=== PATIENT | female | born 1955 | race Caucasian/White ===

== ENCOUNTER 2022-04-11 01:35 | Day surgery (SDC) | payer OTHER, SELFPAY ==
[2022-03-29 15:20] VITALS: BMI 28.6
[2022-04-11 06:20] VITALS: BP 122/92; PULSE 77; RESP 16; TEMP 37.1; O2SAT 100
[2022-04-11] MEDS: LACTATED RINGERS 1,000 ML 150 ML IV CONT (06:35)
--- NOTE | 2022-04-11 07:15 | P.PNAN_ITS ---
Anes - Initial Pre Proc Eval Procedure: Operation Date: 04/11/22 07:30 Proposed Procedures p Screening Colonoscopy - Cody Solis MD Date/Time: 04/11/22 07:15 Surgeon: Cody Solis MD Pre Op Diagnosis: hx of colon polyps, neoplasm screening Patient Data Age: 66 Gender: F Height: 1.57 m Weight: 69 kg Last Vital Signs Temp 98.7 F 04/11/22 06:20 Pulse 77 04/11/22 06:20 Resp 16 04/11/22 06:20 BP 122/92 H 04/11/22 06:20 Pulse Ox 100 04/11/22 06:20 O2 Del Method Room Air 04/11/22 06:20 Allergies Allergy/AdvReac Type Severity Reaction Status Date / Time aspirin Allergy Unknown Wheezing--Sob-Chest Verified 04/11/22 06:19 tightness ibuprofen Allergy Unknown Unknown Verified 04/11/22 06:19 Sulfa (Sulfonamide Allergy Unknown Skin Verified 04/11/22 06:19 Antibiotics) Reaction Home Medications Medication Instructions Recorded Confirmed Type diphenhydramine HCl 25 mg tablet 25 mg PO Q6H PRN Allergy Symptoms 12/14/19 04/11/22 History (Allergy (diphenhydramine)) fluticasone propionate 50 2 spray intranasal DAILY 12/14/19 04/11/22 History mcg/actuation nasal spray,suspension loratadine 10 mg tablet 10 mg PO DAILY 12/14/19 04/11/22 History atorvastatin 40 mg tablet See Rx Instructions .Route 11/20/21 04/11/22 Rx .COMPLEX #90 tabs alendronate 70 mg tablet See Rx Instructions .Route 12/28/21 04/11/22 Rx .COMPLEX #12 tabs Patient hx anesthesia problems: none Family hx anesthesia problems: none Results Review: All pre-operative results and documents have been reviewed as part of the pre- operative evaluation. [facility] Surgical History Surgical History H/O breast biopsy H/O colonoscopy H/O laparoscopy H/O: hysterectomy History of appendectomy Family History Family History Father Hypertension Family history of elevated blood lipids Family history of coronary artery disease Grandparent Carcinoma of colon Social History Social History Smoking status: Never smoker Alcohol intake: current Alcohol use details: 1 PER MONTH Substance use: never Substance use type: does not use Living arrangements: with family Spiritual care concerns: No Anes - Eval Final PreProcedure Day of Procedure 04/11/22 07:15 Patient weight: overweight Heart: regular rate and rhythm Lungs: clear to auscultation Airway: Mallampati scale class II Neurological: alert and oriented Last oral intake: >/= 8 hours ASA classification: II Emergent: no Anesthetic plan: proceed Anesthesia type and monitoring: general GIVS and standard monitoring Results Review: All pre-operative results and documents have been reviewed as part of the pre- operative evaluation. Informed Consent: The patient's anesthetic plan and its attendant risks and benefits were discussed with the patient/family/POA. Questions were solicited and answers provided to the satisfaction of the patient/family/POA.
[2022-04-11] MEDS: SIMETHICONE ORAL SUSPENSION 20 MG/0.3 ML 30 ML BOTTLE 0.6 ML IRRIGATION (07:43)
--- NOTE | 2022-04-11 07:49 | PM.IMHP ---
H&P: HPI History of Present Illness Date/Time: 04/11/22 07:49 Chief Complaint: Neoplasia screening. Narrative: This is a 66-year-old white female patient who presents for neoplasia screening. Patient reports that her current weight appetite and bowel movements are normal. She denies abdominal pain. She has had no bleeding. Family history is significant for her grandmother having colon cancer. Patient herself had an inflammatory benign polyp removed from the colon 2015. She presents today for follow-up examination. She states that her current bowel habits are normal with no bleeding or pain. Review of Systems Review of Systems: Review of systems noncontributory. [facility] Surgical History Surgical History H/O breast biopsy H/O colonoscopy H/O laparoscopy H/O: hysterectomy History of appendectomy Family History Family History Father Hypertension Family history of elevated blood lipids Family history of coronary artery disease Grandparent Carcinoma of colon Social History Social History Smoking status: Never smoker Alcohol intake: current Alcohol use details: 1 PER MONTH Substance use: never Substance use type: does not use Living arrangements: with family Spiritual care concerns: No Meds Home Medications and Allergies Home Medications Medication Instructions Recorded Confirmed Type diphenhydramine HCl 25 mg tablet 25 mg PO Q6H PRN Allergy Symptoms 12/14/19 04/11/22 History (Allergy (diphenhydramine)) fluticasone propionate 50 2 spray intranasal DAILY 12/14/19 04/11/22 History mcg/actuation nasal spray,suspension loratadine 10 mg tablet 10 mg PO DAILY 12/14/19 04/11/22 History atorvastatin 40 mg tablet See Rx Instructions .Route 11/20/21 04/11/22 Rx .COMPLEX #90 tabs alendronate 70 mg tablet See Rx Instructions .Route 12/28/21 04/11/22 Rx .COMPLEX #12 tabs Allergies Allergy/AdvReac Type Severity Reaction Status Date / Time aspirin Allergy Unknown Wheezing--Sob-Chest Verified 04/11/22 06:19 tightness ibuprofen Allergy Unknown Unknown Verified 04/11/22 06:19 Sulfa (Sulfonamide Allergy Unknown Skin Verified 04/11/22 06:19 Antibiotics) Reaction Vital Signs Vital Signs - 24 hr 04/11/22 06:20 Temperature 98.7 F Pulse Rate 77 Respiratory Rate 16 Blood Pressure 122/92 H Pulse Oximetry 100 Oxygen Delivery Room Air Exam Narrative: Physical exam reveals patient to be alert. Vital signs stable. HEENT exam is unremarkable. Patient is anicteric. Lungs are clear to auscultation and percussion. Heart is without murmur or extra sounds. Abdominal exam bowel sounds are present soft nontender with no organomegaly. Digital external rectal exam is normal. Assessment and Plan Assessment and plan (1) Screening for colon cancer: Code(s): Z12.11 - Encounter for screening for malignant neoplasm of colon Status: Acute Assessment and Plan: Patient appears for screening colonoscopy. She has colon cancer in a more distant family member. Plan is for surveillance colonoscopy now further recommendations will be given after endoscopy.
[2022-04-11 07:53] VITALS: BP 103/57; PULSE 75; RESP 22; O2SAT 98
[2022-04-11 08:03] VITALS: BP 115/72; PULSE 63; RESP 22; O2SAT 100
[2022-04-11 08:13] VITALS: BP 129/72; PULSE 61; RESP 17; O2SAT 99
== END 2022-04-11 08:24 | disposition home or self-care (01) ==
PROVIDERS: PCP Family Medicine; Visit Provider Internal Medicine Gastroenterology
PROC: 0DJD8ZZ Inspection of Lower Intestinal Tract, Via Natural or Artificial Opening Endoscopic (ICD-10-PCS; CPT 45378; principal; 2022-04-11 07:30)
DX: Z12.11 Encounter for screening for malignant neoplasm of colon (principal); K64.8 Other hemorrhoids; Z80.0 Family history of malignant neoplasm of digestive organs
CPT/HCPCS: 45378; J2704; J7120

== ENCOUNTER 2022-04-17 15:14 | Outpatient (CLI) | payer OTHER, SELFPAY ==
--- NOTE | ~2022-04-17 | MM_ITS ---
EXAMINATION: MM screening [facility] BI w tom HISTORY: Screening TECHNIQUE: Craniocaudal and mediolateral oblique 3-D tomosynthesis images were obtained and synthetic 2-D images were generated. CAD analysis was submitted and interpreted. COMPARISON: Comparison to multiple prior studies sequentially, with oldest reviewed study dated 02/2014. BREAST PARENCHYMAL COMPOSITION: There are scattered areas of fibroglandular density. FINDINGS: There is no evidence of suspicious mass, calcification, or architectural distortion to sugg est malignancy in either breast. There has been no suspicious interval change. IMPRESSION: 1. No mammographic evidence of malignancy. 2. Recommend routine screening mammography in one year. BI-RADS Category 1: Negative Reviewed, dictated and finalized at location A.
--- NOTE | ~2022-04-17 | DEXA_ITS ---
Bone Density Report Name: CAITY SAUER Age: 66 Sex: Female Ethnicity: White Date of : 1955 Indication: postmenopausal; screening for osteoporosis; height loss; Referring Provider: ERMIAS WALDEN Study: Bone densitometry was performed. Exam Date: April 17, 2022 Accession number: [id number] Bone Density: Region BMD T-score Z-score Classification AP Spine(L1-L4) 0.742 -2.8 -1.0 Osteoporosis Femoral Neck (Left) 0.604 -2.2 -0.7 Osteopenia Total Hip (Left) 0.808 -1.1 0.1 Osteopenia Femoral Neck (Right) 0.687 -1.5 0.0 Osteopenia Total Hip (Right) 0.844 -0.8 0.4 Normal Total Hip Mean 0.826 -1.0 0.3 Normal World Health Organization criteria for BMD impression classify patients as: Normal (T-score at or above -1.0), Osteopenia (T-score between -1.0 and -2.5), or Osteoporosis (T-score at or below -2.5). 10-year Fracture Risk: FRAX not reported because: Some T-score for Spine Total or Hip Total or Femoral Neck at or below -2.5 Treated for osteoporosis Clinical Information Provided by Patient: Is being treated for osteoporosis Has used the following medications: Fosamax (i.e. alendronate) Patient maximum height was 64 Menopause Age: 52 No regular weight bearing exercise Onset of menses at age 14 Number of children 1 Impression: The patient has osteoporosis, based on the Total Spine T-score. Discussion: It is important to ask patients whether they are taking their medications and to encourage continued and appropriate compliance with their osteoporosis therapies to reduce fracture risk. It is also important to review their risk factors and encourage appropriate calcium and vitamin D intakes, exercise, fall prevention and other lifestyle measures. Follow-Up: Consider a repeat BMD and Vertebral Fracture Assessment (VFA) exam in 2 years or sooner if medically necessary, to reassess this patient's status. Reported by: ELMIRA on 04/17/2022 3:54:00 PM. Reviewed, dictated and finalized at location A. [facility]
== END 2022-04-17 15:15 | disposition home or self-care (01) ==
LOC: ANHIMG 15:16
PROVIDERS: PCP Family Medicine; Visit Provider Family Medicine
DX: Z12.31 Encounter for screening mammogram for malignant neoplasm of breast (principal); Z78.0 Asymptomatic menopausal state; M81.0 Age-related osteoporosis without current pathological fracture; M85.852 Other specified disorders of bone density and structure, left thigh; M85.851 Other specified disorders of bone density and structure, right thigh
CPT/HCPCS: 77063; 77067; 77080

== ENCOUNTER 2024-04-26 14:15 | Outpatient (CLI) | payer OTHER, SELFPAY | END 2024-04-26 14:16 | disposition home or self-care (01) | LOC: ANHAUDASC 14:15 | PROVIDERS: PCP Family Medicine; Visit Provider Nurse Practitioner | DX: H90.6 Mixed conductive and sensorineural hearing loss, bilateral (principal) | CPT/HCPCS: 92557; 92567 ==

== ENCOUNTER 2024-05-13 15:21 | Outpatient (CLI) | payer OTHER, SELFPAY ==
--- NOTE | ~2024-05-13 | MM_ITS ---
EXAMINATION: MM screening [facility] BI w tom HISTORY: Screening TECHNIQUE: Craniocaudal and mediolateral oblique 3-D tomosynthesis images were obtained and synthetic 2-D images were generated. CAD analysis was submitted and interpreted. COMPARISON: Comparison to multiple prior studies sequentially, with oldest reviewed study dated 04/12. BREAST PARENCHYMAL COMPOSITION: Not dense: There are scattered areas of fibroglandular density. FINDINGS: There is no evidence of suspicious mass, calcification, or architectural distortion to sugg est malignancy in either breast. There has been no suspicious interval change. IMPRESSION: 1. No mammographic evidence of malignancy. 2. Recommend routine screening mammography in one year. BI-RADS Category 1: Negative Reviewed, dictated and finalized at location B.
== END 2024-05-13 15:22 | disposition home or self-care (01) ==
PROVIDERS: PCP Family Medicine; Visit Provider Nurse Practitioner
DX: Z12.31 Encounter for screening mammogram for malignant neoplasm of breast (principal)
CPT/HCPCS: 77063; 77067

== ENCOUNTER 2025-03-09 14:17 | Outpatient (CLI) | payer OTHER, SELFPAY ==
--- OUTSIDE RECORDS SUMMARY | 2025-03-09 14:26 | XMS_ITS | Clinical Summary ---
Author Organization [facility] [place] [address] Address [address] [place] [address] Care Team Providers Care Crisis Specialist Name Role Phone Val Yost DO Primary Care Provider +1- [phone] Allergies Active Allergy Reactions Criticality Noted Date Comments Aspirin Wheezing Medium 01/29/2021 Ibuprofen Wheezing Medium 01/29/2021 Sulfa (Sulfonamide Antibiotics) Rash Medium 01/02 Medications atorvastatin (LIPITOR) 40 mg tablet Take 40 mg by mouth daily Active loratadine 10 mg capsule Take by mouth Activ e alendronate (FOSAMAX) 70 mg tablet Take 70 mg by mouth every 7 days Take in the morning with a full glass of water, on an empty stomach, and do not take anything else by mouth or lie down for the next 30 min. Active fluticasone propionate (FLONASE) 50 mcg/actuation nasal spray Administer 1 spray into each nostril daily Active Active Problems Problem Noted Date Diagnosed Date Other chest pain 01/29/2021 Mixed hyperlipidemia 01/29/2021 Family history of premature CAD 01/29/2021 Allergic to aspirin 01/29/2021 Surgical History Surgery Date Site/Laterality Comments APPENDECTOMY 11/03/1999 - 11/02/2000 HYSTERECTOMY 11/03/2006 - 11/02/2007 Medical History Medical History Date Comments Hyperlipidemia Diverticulitis Family History Medical History Relation Name Comments Heart attack Brother 3 Hypertension Father Heart disease Mother Kidney failure Mother Pneumonia Sister 1 Heart disease Sister 2 Stroke Sister 3 Colon cancer Sister 4 Relation Name Status Comments Brother 1 Alive Brother 2 Alive Brother 3 (Age 65) Brother 4 Alive Brother 5 Alive Father (Age 61) Mother (Age 74) Sister 1 (Age 40) Sister 2 Alive Sister 3 Alive Sister 4 (Age 70) Social History Tobacco Use Types Packs/Day Years Used Date Smoking Tobacco: Never Smokeless Tobacco: Never Personal Safety Answer Date Recorded Getting School Help Needed Not on file 01/03 Comments Unknown Sex and Gender Information Value Date Recorded Sex Assigned at Not on file 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 Gender Identity Not on file Sexual Orientation Not on file Obstetrics History Last Filed Vital Signs Vital Sign Reading Time Taken Comments Blood Pressure 136/82 01/29/2021 8:57 AM CDT Pulse 90 01/29/2021 8:57 AM CDT Temperature - - Respiratory Rate - - Oxygen Saturation 98% 01/29/2021 8:57 AM CDT Inhaled Oxygen Concentration - - Weight 73.5 kg (162 lb) 01/29/2021 8:57 AM CDT Height 157.5 cm (5' 2 ) 01/29/2021 8:57 AM CDT Body Mass Index 29.63 01/29/2021 8:57 AM CDT Plan of Treatment Not on file Insurance [employer] [place] Care Teams Crisis Specialist Relationship Specialty Start Date End Date Val Yost DO PCP - General Family Medicine 01/22/21
--- OUTSIDE RECORDS SUMMARY | 2025-03-09 14:26 | XMS_ITS | Referral Summary ---
Author Organization [facility] [place] [address] Address [address] [place] [address] Care Team Providers Care Supervisor Hydrochloric Area Name Role Phone Val Yost DO Primary Care Provider +1- [phone] Allergies Active Allergy Reactions Criticality Noted Date [...] premature CAD 01/29/2021 Allergic to aspirin 01/29/2021 Social History Tobacco Use Types Packs/Day Years Used Date Smoking Tobacco: Never Smokeless Tobacco: Never Personal Safety Answer Date Recorded Getting School Help Needed Not on file 01/03 Comments Unknown Sex and Gender Information Value Date Recorded Sex Assigned at Not on file 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
== END 2025-03-09 14:18 | disposition home or self-care (01) ==
PROVIDERS: PCP Family Medicine; Visit Provider Otolaryngology
DX: H90.42 Sensorineural hearing loss, unilateral, left ear, with unrestricted hearing on the contralateral side (principal); H90.71 Mixed conductive and sensorineural hearing loss, unilateral, right ear, with unrestricted hearing on the contralateral side
CPT/HCPCS: 92557; 92567

== ENCOUNTER 2025-04-04 13:31 | Outpatient (CLI) | payer OTHER, SELFPAY ==
--- NOTE | ~2025-04-04 | DEXA_ITS ---
Bone Density Report Name: CAITY SAUER Age: 69 Sex: Female Ethnicity: White Date of : 1955 Indication: postmenopausal osteoporosis; monitoring treatment; height loss; hysterectomy; Referring Provider: TONA ORTIZ Study: Bone densitometry was performed. Exam Date: April 04, 2025 Accession number: [id number] Bone Density: Region BMD T-score Z-score Classification AP Spine(L1-L4) 0.716 -3.0 -1.1 Osteoporosis Femoral Neck (Left) 0.631 -2.0 -0.3 Osteopenia Total Hip (Left) 0.882 -0.5 0.9 Normal Femoral Neck (Right) 0.659 -1.7 -0.1 Osteopenia Total Hip (Right) 0.867 -0.6 0.7 Normal Total Hip Mean 0.874 -0.6 0.8 Normal World Health Organization criteria for BMD impression classify patients as: Normal (T-score at or above -1.0), Osteopenia (T-score between -1.0 and -2.5), or Osteoporosis (T-score at or below -2.5). 10-year Fracture Risk: FRAX not reported because: Some T-score for Spine Total or Hip Total or Femoral Neck at or below -2.5 Treated for osteoporosis Previous Exams: Region Exam Age BMD T-score BMD Change BMD Change Date g/cm2 vs Baseline vs Previous AP Spine (L1-L4) 04/04/2025 69 0.716 -3.0 -0.026 (-3.5%) -0.026 (-3.5%) 04/17/2022 66 0.742 -2.8 Total Hip(Left) 04/04/2025 69 0.882 -0.5 0.074 (9.2%)* 0.074 (9.2%)* 04/17/2022 66 0.808 -1.1 Total Hip(Right) 04/04/2025 69 0.867 -0.6 0.022 (2.6%) 0.022 (2.6%) 04/17/2022 66 0.844 -0.8 *Denotes significance at 95% confidence level, LSC for AP Spine = 0.022 g/cm2, LSC for Total Hip = 0.027 g/cm2 Clinical Information Provided by Patient: Is being treated for osteoporosis Has used the following medications: Fosamax (i.e. alendronate), HRT (i.e. estrogen/hormone therapy), Vitamin D Has the following medical conditions: Hysterectomy Patient maximum height was 63.0 Menopause Age: 52 No regular weight bearing exercise Onset of menses at age 14 Number of children 1 Impression: The patient has osteoporosis, based on the Total Spine T-score. The BMD for the AP Spine (L1-L4) decreased, changing by -3.5% since the last DXA exam. Discussion: SIGNIFICANT BONE LOSS OBSERVED. Adherence to therapy (including calcium and vitamin D intake) should be assessed. If compliance is not a factor, review management and exclusion of secondary causes of bone loss. It is important to ask patients whether they are taking their medications and to encourage continued and appropriate compliance with their osteoporosis therapies to reduce fracture risk. It is also important to review their risk factors and encourage appropriate calcium and vitamin D intakes, exercise, fall prevention and other lifestyle measures. Follow-Up: Consider a repeat BMD and Vertebral Fracture Assessment (VFA) exam in 2 years or sooner if medically necessary, to reassess this patient's status. Reported by: ELMIRA on 04/04/2025 2:07:00 PM. Reviewed, dictated and finalized at location A.
--- OUTSIDE RECORDS SUMMARY | 2025-04-04 13:48 | XMS_ITS | Clinical Summary ---
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
--- OUTSIDE RECORDS SUMMARY | 2025-04-04 13:48 | XMS_ITS | Referral Summary ---
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
== END 2025-04-04 13:32 | disposition home or self-care (01) ==
LOC: ANHIMG 13:34
PROVIDERS: Visit Provider Nurse Practitioner
DX: M85.88 Other specified disorders of bone density and structure, other site (principal); M81.0 Age-related osteoporosis without current pathological fracture; M85.852 Other specified disorders of bone density and structure, left thigh; M85.851 Other specified disorders of bone density and structure, right thigh
CPT/HCPCS: 77080

== ENCOUNTER 2025-05-20 14:06 | Outpatient (CLI) | payer OTHER, SELFPAY ==
--- NOTE | ~2025-05-20 | MM_ITS ---
EXAMINATION: MM screening [facility] BI w tom HISTORY: Screening TECHNIQUE: Craniocaudal and mediolateral oblique 3-D tomosynthesis images were obtained and synthetic 2-D images were generated. CAD analysis was submitted and interpreted. COMPARISON: Comparison to multiple prior studies sequentially, with oldest reviewed study dated 04/12. BREAST PARENCHYMAL COMPOSITION: Not dense: There are scattered areas of fibroglandular density. FINDINGS: New periareolar mass of the right breast. The left breast is stable without evidence for ma lignancy. IMPRESSION: 1. New periareolar right breast mass. 2. Additional mammographic views and possible breast ultrasound are recommended. BI-RADS Category 0: Incomplete: Needs additional imaging evaluation. Reviewed, dictated and finalized at location B. IMPRESSION: 1. New periareolar right breast mass. 2. Additional mammographic views and possible breast ultrasound are recommended . BI-RADS Category 0: Incomplete: Needs additional imaging evaluation.
--- OUTSIDE RECORDS SUMMARY | 2025-05-20 14:09 | XMS_ITS | Clinical Summary ---
Author Organization 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
--- OUTSIDE RECORDS SUMMARY | 2025-05-20 14:09 | XMS_ITS | Referral Summary ---
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
== END 2025-05-20 14:07 | disposition home or self-care (01) ==
LOC: ANHIMG 14:07
PROVIDERS: PCP Family Medicine; Visit Provider Nurse Practitioner
DX: Z12.31 Encounter for screening mammogram for malignant neoplasm of breast (principal); R92.8 Other abnormal and inconclusive findings on diagnostic imaging of breast
CPT/HCPCS: 77063; 77067

== ENCOUNTER 2025-06-10 12:07 | Outpatient (CLI) | payer OTHER, SELFPAY ==
--- NOTE | ~2025-06-10 | MM_ITS ---
EXAMINATION: MM diagnostic bob RT w tom INDICATION: 69-year old female; BI-RADS 0, callback to evaluate Right breast finding COMPARISON: 05/20/2025 TECHNIQUE: Digital breast tomosynthesis True lateral view and spot compression pain CC and MLO views of Right breast were obtained with computer-aided detection to assist in interpretation of the study. FINDINGS: There are scattered areas of fibroglandular density. The focal asymmetry seen in the periareolar Right breast on the screening mammogram effaces on additi onal views, compatible with normal overlapping tissue.. IMPRESSION: Right breast finding represents superimposition of fibroglandular tissue. No further investigation ne cessary. RECOMMENDATION: Annual screening mammography in 12 months BI-RADS 2, BENIGN Reviewed, dictated and finalized at location B. IMPRESSION: Right breast finding represents superimposition of fibroglandular tissue. No fu rther investigation necessary. RECOMMENDATION: Annual screening mammography in 12 months BI-RADS 2, BENIGN
--- OUTSIDE RECORDS SUMMARY | 2025-06-10 12:10 | XMS_ITS | Clinical Summary ---
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
== END 2025-06-10 12:08 | disposition home or self-care (01) ==
LOC: ANHIMG 12:09
PROVIDERS: PCP Family Medicine; Visit Provider Nurse Practitioner
DX: R92.8 Other abnormal and inconclusive findings on diagnostic imaging of breast (principal)
CPT/HCPCS: 77061; 77065; G0279

== ENCOUNTER 2025-09-20 12:47 | Outpatient (CLI) | payer OTHER, SELFPAY ==
--- NOTE | ~2025-09-20 | XR_ITS ---
EXAMINATION: XR ankle RT min 3V, 09/20/2025 13:42 MILLINERY WORKER HISTORY: Unspecified fall, twisted and fell 1 month ago COMPARISON: No comparisons available. Findings: No acute fracture or malalignment. No significant degenerative changes. Soft tissues unremarkable. Impression: No acute fracture or malalignment. Reviewed, dictated and finalized at location P. INERY WORKER Impression: No acute fracture or malalignment.
--- NOTE | ~2025-09-20 | XR_ITS ---
EXAMINATION: XR tibia fibula RT 2V, 09/20/2025 13:42 HTML WEB DEVELOPER HISTORY: Unspecified fall, twisted and fell 1 month ago COMPARISON: No comparisons available. Findings: No acute fracture or malalignment. No significant degenerative changes. Soft tissues unremarkable. Impression: No acute fracture or malalignment. Reviewed, dictated and finalized at location P. WEB DEVELOPER Impression: No acute fracture or malalignment.
== END 2025-09-20 12:48 | disposition home or self-care (01) ==
LOC: GOSHIMG 12:47
PROVIDERS: PCP Family Medicine; Visit Provider Family Medicine
DX: M25.571 Pain in right ankle and joints of right foot (principal); M79.661 Pain in right lower leg; W19.XXXA Unspecified fall, initial encounter
CPT/HCPCS: 73590; 73610